=== PATIENT | male | born 1955 | race Caucasian/White ===

== ENCOUNTER 2021-04-12 07:21 | Day surgery (SDC) | payer OTHER ==
[2021-04-07 15:24] VITALS: BMI 29.5
[~2021-04-12 07:21] MED LIST: LACTATED RINGERS 1,000 ML IV SCH
[2021-04-12 07:47] VITALS: TEMP 97.4
[2021-04-12] MEDS ORDERED: PROPOFOL 10 MG/ML 20 ML VIAL IV ONE (07:54)
[2021-04-12] MEDS ORDERED: LIDOCAINE 1% INJ 10MG/ML (20 ML MDV) ONE (07:54)
--- NOTE | 2021-04-12 07:59 | P.GSHP ---
History of Present Illness H&P Date: 04/12/21 Chief Complaint: Screening colonoscopy Is a 66-year-old male presents today for screening colonoscopy. Patient denies a significant GI complaints. Past Medical History Past Medical History: GERD/Reflux, Hyperlipidemia, Hypertension History of Any Multi-Drug Resistant Organisms: None Reported Past Surgical History: Joint Replacement, Tonsillectomy Additional Past Surgical History / Comment(s): scott knee replacement, scott knee arthroscopies Past Anesthesia/Blood Transfusion Reactions: No Reported Reaction Smoking Status: Never smoker Medications and Allergies Home Medications Medication Instructions Recorded Confirmed Type Aspirin [Adult Low Dose Aspirin EC] 81 mg PO DAILY 04/07/21 04/12/21 History Atenolol/Chlorthalidone 1 tab PO DAILY 04/07/21 04/12/21 History [Atenolol/Chlorthalidone 50-25] Lisinopril [Zestril] 10 mg PO DAILY 04/07/21 04/12/21 History Rosuvastatin [Crestor] 20 mg PO DAILY 04/07/21 04/12/21 History Allergies Allergy/AdvReac Type Severity Reaction Status Date / Time No Known Allergies Allergy Verified 04/12/21 07:34 Surgical - Exam Vital Signs Temp Pulse Resp BP Pulse Ox 97.4 F L 64 18 146/79 97 04/12/21 07:41 04/12/21 07:41 04/12/21 07:41 04/12/21 07:41 04/12/21 07:41 - General well developed, well nourished, no distress - Eyes PERRL - ENT normal pinna - Neck no masses - Respiratory normal expansion - Cardiovascular Rhythm: regular - Abdomen Abdomen: soft Assessment and Plan Assessment: We'll perform screening colonoscopy.
--- NOTE | 2021-04-12 08:13 | P.OP ---
Date of Procedure: 04/12/21 Preoperative Diagnosis: Screening colonoscopy Postoperative Diagnosis: Diverticulosis External hemorrhoids Procedure(s) Performed: Colonoscopy Anesthesia: MAC Surgeon: Maxwell Dominguez Pathology: none sent Condition: stable Disposition: PACU Description of Procedure: The patient's placed on the endoscopy table in the lateral position. He received IV sedation. Digital rectal exam was performed which revealed external hemorrhoids. Flexible colonoscope was then placed patient anus passed throughout the entire colon. The ileocecal valve was visualized. Cecum, ascending and transverse colon appeared normal. The descending and sigmoid colon had moderate diverticular changes. Scope summer back the rectum and this appeared normal the scope was brought to anus and there is some minimal internal hemorrhoids.
[2021-04-12 08:15] VITALS: RESP 16
[2021-04-12 08:34] VITALS: BP 125/71; PULSE 66
== END 2021-04-12 08:55 | disposition home or self-care (01) ==
LOC: ORWHC2ENDO 07:21
PROVIDERS: ATTEND Surgery
DX: Z12.11 Encounter for screening for malignant neoplasm of colon (principal); K57.30 Diverticulosis of large intestine without perforation or abscess without bleeding; K64.4 Residual hemorrhoidal skin tags; K64.8 Other hemorrhoids; K21.9 Gastro-esophageal reflux disease without esophagitis; E78.5 Hyperlipidemia, unspecified; I10 Essential (primary) hypertension; Z96.653 Presence of artificial knee joint, bilateral; Z79.82 Long term (current) use of aspirin; Z79.899 Other long term (current) drug therapy
CPT/HCPCS: J2001; J2704; G0121